=== PATIENT | male | born 1945 | race Caucasian/White ===

== ENCOUNTER 2020-05-01 13:30 | Outpatient (CLI) | payer MEDICARE, BC ==
[~2020-05-01 13:30] MED LIST: ASPIRIN EC81 MG ORAL; ATORVASTATIN CA40 MG ORAL; FLOMAX0.4 MG ORAL; HYDROCHLOROTHIA25 MG ORAL; METFORMIN HCL1000 M1 ORAL; METOPROLOL SUCC25 MG ORAL; MULTIVITAMINS1 EAC2 ORAL; OMEPRAZOLE20 M2 ORAL; TRAZODONE HCL50 MG ORAL
== END 2020-05-01 15:30 | disposition home or self-care (01) ==
LOC: PAN 13:30
DX: R10.9 Unspecified abdominal pain (principal)
CPT/HCPCS: 99212

== ENCOUNTER 2020-05-24 08:13 | Day surgery (SDC) | payer MEDICARE, BC ==
--- NOTE | 2019-05-10 07:25 | Anethesia Preoperative Eval ---
Anesthesia Pre-op PMH/ROS General ASA Score: ASA 4 Mallampati Score Class I : Soft palate, uvula, fauces, pillars visible Class II: Soft palate, uvula, fauces visible Class III: Soft palate, base of uvula visible Class IV: Only hard plate visible Allergies: Coded Allergies: No Known Allergies (Unverified , 03/16/19) Farida Cheema MD May 10, 2019 07:24
[~2020-05-24] VITALS: Ht 182.9 cm; Wt 81.6 kg
[2020-05-24] VITALS (9 sets, daily range): BP systolic 122–147; BP diastolic 65–80
[~2020-05-24 08:13] MED LIST changes: +Atropine Inj 1mg/10ml Syr IV PRN; +BRILINTA90 MG PO; +DiphenhydrAMINE 50mg/ml Inj IVP PRN; +FLONASE ALLERG9.9 ML NS; +LR 1000ml 1,000 ML IVLG SCH; +Midazolam 2mg/2ml Inj IVP PRN; +PANTOPRAZOLE SO40 MG ORAL; +PRALUENT P75 MG/1 ML SQ; +fentaNYL 100 mcg/2 mL IV PRN
--- NOTE | 2020-05-24 09:40 | Pre-Procedure Note/Attestation ---
Pre-Procedure Note/Attestation Complete Prior to Procedure Planned Procedure: not applicable Procedure Narrative: esophagogastroduodenoscopy and colonoscopy Indications for Procedure Pre-Operative Diagnosis: screening colon, GERD Attestation I attest that I discussed the nature of the procedure; its benefits; risks and complications; and alternatives (and the risks and benefits of such al ternatives), prior to the procedure, with the patient (or the patient's legal client account representative). I attest that, if there was a reasonable possibility of needing a blood transfusion, the patient (or the patient's legal client account representative) was given the [facility] standardized written summary, pursuant to the [place] Blood Safety Act ([place] Health and Safety Code # 1645, as amended). I attest that I re-evaluated the patient just prior to the surgery and that there has been no change in the patient's H&P, except as documented below: Faizan Zacarias MD May 24, 2020 09:40
--- NOTE | 2020-05-24 09:40 | Short Stay Surgery H&P ---
History of Present Illness History of Present Illness Chief Complaint see office note HPI Cullen Garcia is a 74 year old male who was admitted on for Colon Screening And Gerd Patient History Allergies: Coded Allergies: No Known Allergies (Unverified , 05/24/20) Medication History Scheduled Alirocumab (Praluent Pen), 75 MG SQ every 2 weeks, (Reported) Aspirin Ec* (Aspirin Ec*), 81 MG ORAL DAILY, (Reported) Atorvastatin Calcium* (Atorvastatin Calcium*), 40 MG ORAL BEDTIME, (Reported) Fluticasone Propionate (Flonase Allergy Relief), 9.9 ML NS PRN, (Reported) Hydrochlorothiazide* (Hydrochlorothiazide*), 25 MG ORAL DAILY, (Reported) Metformin Hcl* (Metformin Hcl*), 1,000 MG ORAL BID, (Reported) Metoprolol Succinate* (Metoprolol Succinate*), 25 MG ORAL DAILY, (Reported) Multivitamins* (Multivitamins*), 1 TAB ORAL DAILY, (Reported) Pantoprazole* (Pantoprazole*), 40 MG ORAL DAILY, (Reported) Tamsulosin HCl (Flomax), 0.4 MG ORAL DAILY, (Reported) Ticagrelor* (Brilinta*), 90 MG PO BID, (Reported) Trazodone Hcl* (Desyrel*), 50 MG ORAL BEDTIME, (Reported) Discontinued Medications Omeprazole (Omeprazole), 20 MG ORAL DAILY, (Reported) Discontinued Reason: Pt stopped taking med Physical Exam Vital Signs Last Vital Signs Date Time Temp Pulse Resp B/P (MAP) Pulse Ox O2 Delivery O2 Flow Rate FiO2 05/24/20 08:35 97.7 69 18 147/80 98 Room Air Plan Attestation Are the patient's medical conditions optimized for surgery? Faizan Zacarias MD May 24, 2020 09:40
[2020-05-24] MEDS ORDERED: LR 1000ml ONE (10:00)
[2020-05-24] MEDS ORDERED: Lidocaine 1% MPF 10mg/ml 5ml ONE (10:00)
--- NOTE | 2020-05-24 10:24 | Anethesia Preoperative Eval ---
Anesthesia Pre-op PMH/ROS General Date of Evaluation: May 24, 2020 Time of Evaluation: 10:00 Anesthesiologist: mariana ASA Score: ASA 3 Mallampati Score Class I : Soft palate, uvula, fauces, pillars visible Class II: Soft palate, uvula, fauces visible Class III: Soft palate, base of uvula visible Class IV: Only hard plate visible Mallampati Classification: Class II Surgeon: ellie Diagnosis: screening Surgical Procedure: EGD/Colonoscopy Anesthesia History: none Family History: no anesthesia problems Allergies: Coded Allergies: No Known Allergies (Unverified , 05/24/20) Medications: see eMAR Patient NPO?: Yes NPO Date: May 24, 2020 NPO Time: 00:01 Past Medical History Cardiovascular: Reports: HTN, CAD, [place]; Denies: valve dz, arrhythmia, other Pulmonary: Denies: asthma, COPD, [place], other Gastrointestinal/Genitourinary: Reports: GERD; Denies: CRI, ESRD, other Neurologic/Psychiatric: Denies: dementia, CVA, depression/anxiety, TIA, other Endocrine: Reports: DM Hematology/Immune: Denies: anemia, DVT, bleeding disorder, other PMH Narrative: stents Anesthesia Pre-op Phys. Exam Physician Exam Last Vital Signs Date Time Temp Pulse Resp B/P (MAP) Pulse Ox O2 Delivery O2 Flow Rate FiO2 05/24/20 08:35 97.7 69 18 147/80 98 Room Air Constitutional: NAD Neurologic: CN 2-12 intact Cardiovascular: RRR Respiratory: CTA Airway Exam Mallampati Classification 2 Mallampati Score: Class II MO: full ROM: full Dentures: upper, lower Anesthesia Pre-op A/P Studies Pre-op Studies: EKG - SR 1AVB Risk Assessment & Plan Assessment: covid neg Plan: mac Status Change Before Surgery: No Pre-Antibiotics Drug: none Eliza Parks CRNA May 24, 2020 10:24
--- NOTE | 2020-05-24 10:27 | Endoscopy Procedure Note ---
Endoscopy Procedure Note General Indication for Procedure: screening colon, GERD Procedures Performed: EGD, colonoscopy Operative Findings/Diagnosis: 4 colon polyps Specimen: yes Pt Tolerated Procedure Well: Yes Estimated Blood Loss: none Anesthesia Anesthesiologist: kacey Anesthesia: MAC Inserted Devices Implant(s) used?: No Quality Quality of Bowel Preparation: Good Did scope reach the cecum?: Yes Was there any complications?: No GI Core Measures 50 yrs or older w/o bx or poly: No 10yrs. F/U recommended: Yes If not recommended, why?: Above average risk 18 years or older w/prev. colo: No Faizan Zacarias MD May 24, 2020 10:27
--- NOTE | 2020-05-24 10:39 | Immediate Post-Op Evaluation ---
Immediate Post-Op Evalulation Immediate Post-Op Evalulation Procedure: egd/colonoscopy Date of Evaluation: May 24, 2020 Time of Evaluation: 10:38 IV Fluids: 500 Blood Pressure Systolic: 122 Blood Pressure Diastolic: 86 Pulse Rate: 57 Respiratory Rate: 14 O2 Sat by Pulse Oximetry: 98 Temperature (Fahrenheit): 97.3 Nausea: No Vomiting: No Complications none Patient Status: awake, reacts, patent Hydration Status: adequate Drug: none Eliza Parks CRNA May 24, 2020 10:39
--- NOTE | 2020-05-24 10:59 | Procedure Note ---
DATE OF PROCEDURE: 05/24/2020 SURGEON: Faizan Zacarias MD. PROCEDURE: Upper endoscopy with biopsy and colonoscopy with snare polypectomy and biopsy. ANESTHESIA: Per BENDING ROLL HAND, Eliza Tarrillion. INSTRUMENT: Olympus adult flexible upper endoscope and colonoscope. INDICATION: Screening colonoscopy evaluation and chronic GERD. REASON FOR PROCEDURE: The procedure, risks, benefits, and possible consequences, including hemorrhage, aspiration, perforation and infection, and alternative treatments, were explained to the patient/legal guardian by Dr. Faizan Zacarias and the patient/legal guardian understood and accepted these risks. PROCEDURE IN DETAIL: After informed consent was obtained and the patient was adequately sedated, Olympus upper endoscope was advanced from mouth into the second portion of the duodenum and retroflexion was performed in the stomach. The patient has evidence of diffuse gastritis. Random biopsy from antrum was obtained to rule out H. pylori infection. The patient had evidence of few polyps in the body suspicious for fundic gland polyps, two of them were biopsied. At this time, the upper endoscope was retrieved and the patient was turned over for colonoscopy. First, rectal exam was performed, which was positive for internal hemorrhoids. Then, the scope was advanced from the rectum into cecum, then subsequently to terminal ileum. Quality of prep was good. The patient had one sessile polyp measured roughly about 1.1 to 1.2 cm in the transverse colon, removed with a hot snare polypectomy technique and two stool pieces. The patient had three polyps in the rectosigmoid area, one of them removed with the cold snare. The rest of them with cold biopsy forceps technique. The patient had some scattered diverticulosis in the left colon. The patient had hemorrhoids on retroflexion in the rectum. SUMMARY OF FINDINGS: 1. Gastric polyps, status post biopsy. 2. Gastritis, status post biopsy. 3. Total of four colonic polyps removed. 4. Diverticulosis of left colon. 5. Internal hemorrhoids. RECOMMENDATIONS: 1. Follow pathology and treat accordingly. 2. He will need repeat colonoscopy in three years given four polyps. Faizan Zacarias M.D. DR: DAYANA JOB#: [id number] CC:
--- NOTE | 2020-05-24 11:27 | 48 Hour Post Anesthesia Eval ---
Post Anesthesia Evaluation Procedure: egd/colonoscopy Date of Evaluation: May 24, 2020 Time of Evaluation: 11:26 Blood Pressure Systolic: 126 0: 73 Pulse Rate: 76 Respiratory Rate: 14 Airway: patent Nausea: No Vomiting: No Hydration Status: adequate Cardiopulmonary Status: stable Mental Status/LOC: patient returned to baseline Post-Anesthesia Complications: none Follow-up care needed: N/A Eliza Parks CRNA May 24, 2020 11:27
== END 2020-05-24 10:30 | disposition home or self-care (01) ==
LOC: GAS 08:13
DX: Z12.11 Encounter for screening for malignant neoplasm of colon (principal); K21.9 Gastro-esophageal reflux disease without esophagitis; K31.7 Polyp of stomach and duodenum; K63.5 Polyp of colon; K57.90 Diverticulosis of intestine, part unspecified, without perforation or abscess without bleeding; K64.8 Other hemorrhoids; K29.50 Unspecified chronic gastritis without bleeding; D12.4 Benign neoplasm of descending colon; E75.5 Other lipid storage disorders; I25.2 Old myocardial infarction; E11.9 Type 2 diabetes mellitus without complications; Z95.5 Presence of coronary angioplasty implant and graft; I11.9 Hypertensive heart disease without heart failure; I25.10 Atherosclerotic heart disease of native coronary artery without angina pectoris; Z79.82 Long term (current) use of aspirin; Z79.899 Other long term (current) drug therapy; Z79.84 Long term (current) use of oral hypoglycemic drugs
CPT/HCPCS: 43239; 45380; 45385; 94003; J2704; J7120; U0004; 94150

== ENCOUNTER → 2020-05-31 | Outpatient (CLI) | payer MEDICARE, BC ==
[~2020-05-31] MED LIST changes: -Atropine Inj 1mg/10ml Syr IV PRN; -DiphenhydrAMINE 50mg/ml Inj IVP PRN; -LR 1000ml 1,000 ML IVLG SCH; -Midazolam 2mg/2ml Inj IVP PRN; -fentaNYL 100 mcg/2 mL IV PRN
--- NOTE | 2020-05-31 14:43 | General Progress Note ---
Subjective ROS Limited/Unobtainable: Yes Allergies: Coded Allergies: No Known Allergies (Unverified , 05/24/20) Objective General Appearance: alert EENT: normal ENT inspection Neck: supple Cardiovascular: normal rate Respiratory/Chest: lungs clear Abdomen: normal bowel sounds, non tender, soft Extremities: non-tender Assessment/Plan Assessment/Plan: SUMMARY OF FINDINGS: 1. Gastric polyps, status post biopsy. 2. Gastritis, status post biopsy. 3. Total of four colonic polyps removed. 4. Diverticulosis of left colon. 5. Internal hemorrhoids. RECOMMENDATIONS: 1. path reviewed. 2. He will need repeat colonoscopy in three years given four polyps. Faizan Zacarias MD May 31, 2020 14:43
== END | disposition home or self-care (01) ==
LOC: PAN 13:11
DX: K31.7 Polyp of stomach and duodenum (principal); K29.70 Gastritis, unspecified, without bleeding; K63.5 Polyp of colon; K57.90 Diverticulosis of intestine, part unspecified, without perforation or abscess without bleeding; K64.8 Other hemorrhoids